=== PATIENT | male | born 1960 | race Caucasian/White ===

== ENCOUNTER 2025-06-27 13:19 | Outpatient (CLI) | payer OTHER ==
[2025-06-27 13:54] LABS: Estimated GFR - POC 68.0
== END 2025-06-27 13:20 | disposition home or self-care (01) ==
LOC: SCSMRI 13:19
PROVIDERS: ATTEND Urology
DX: R97.20 Elevated prostate specific antigen [PSA] (principal)
CPT/HCPCS: 36415; 72197; 82565